=== PATIENT | female | born 1940 | race Caucasian/White ===

== ENCOUNTER 2016-08-19 18:50 | Emergency (ER) | payer MEDICARE, OTHER ==
[2016-08-19] MEDS ORDERED: SODIUM CHLORIDE 0.9% 1,000 ML ONE (22:01)
[2016-08-19] MEDS ORDERED: DILAUDID 1 MG/ML AMP ONE (22:57)
[2016-08-19] MEDS ORDERED: ONDANSETRON 4 MG VIAL ONE (22:57)
== END 2016-08-19 23:53 | disposition home or self-care (01) ==
LOC: ER 18:50
DX: J18.9 Pneumonia, unspecified organism (principal); I48.91 Unspecified atrial fibrillation; E03.9 Hypothyroidism, unspecified; G62.9 Polyneuropathy, unspecified; Z79.82 Long term (current) use of aspirin; Z79.899 Other long term (current) drug therapy
CPT/HCPCS: 36415; 71020; 80053; 81001; 85025; 87077; 87088; 87186; 87804; 87880; 96361; 96374; 96375; 99285; J1170; J2405